=== PATIENT | female | born 1950 | race Caucasian/White ===

== ENCOUNTER → 2016-12-21 | Day surgery (SDC) | payer MEDICARE, OTHER ==
[~2016-12-21] MED LIST: ACET25TA2 PO; AMLO5TAB2 PO; ASPI81TA11 PO; ATEN50TA PO; CELE100C PO; CHLO.12%30 SWISH-SPIT; CO Q100C9 PO; ESTR42.5V VAGINAL; HYDR-3580 PO; LIDOCAINE HCL 1% 30 ML VIAL INFIL ONE; LIPI10TA PO; MEPERIDINE HCL 25 MG/ML VIAL IV ONE; MEST60TA PO; META0.522 PO; MIRA25TA PO; MULT1TAB46 PO; NEUR600T PO; PRED5TAB PO; PROPOFOL 200 MG/20 ML AMP IV ONE; SODIUM CHLORIDE 0.9% 10 ML VIAL ONE; TRIAMCINOLONE ACETONIDE 40 MG/ML VIAL NERV BLOCK ONE; VITA100064 PO; ZOLO100T PO
--- NOTE | 2016-12-24 16:14 | M6 ---
cc: MUARICIO MEDINA M.D. DATE: 12/21/2016 DATE OF : 1950 PROCEDURE Fluoroscopically guided C7-T1 translaminar epidural steroid injection. History and physical was completed and signed. Consent was signed. Procedure site was marked. Medications were listed and reconciled. Pain score was recorded. Allergies were noted. Time out was taken. Fluoroscopy time was recorded where applicable. Sedation was administered or directed by Dr. Medina. The patient was given oxygen. The patient was monitored by a registered nurse. Total procedure time was greater than 15 minutes. IV was started, blood pressure cuff, pulse oximeter and EKG were applied. The patient was placed in the prone position on a Fabricio table sedated with small amounts of propofol titrated to effect. Vital signs were monitored and remained stable throughout the procedure cervical area was prepped with alcohol and 10% Betadine solution and draped with sterile drapes. Fluoroscopy was used to visualize the C7-T1 translaminar space. The skin was infiltrated with 1% Xylocaine using a 27 gauge needle then a 3-1/2-inch 18-gauge Ricketts needle was advanced using fluoroscopic guidance and the [id number] technique into the epidural space at C7-T1 slightly to the left the midline. There was negative aspiration for blood or any other type of fluid and the patient was given 5 mL of normal saline 60 mg of Kenalog. Following this the patient was taken to the recovery room with stable vital signs neurologically intact. WMD GIOVANY Chaidez/ignacio /9:12 AM /4:08 PM
== END | disposition home or self-care (01) ==
LOC: PHSDC 06:47
PROVIDERS: ATTEND Pain Medicine Interventional Pain Medicine
DX: M54.2 Cervicalgia (principal); M25.519 Pain in unspecified shoulder
CPT/HCPCS: 62321; 99152; J2175; J3301

== ENCOUNTER → 2017-02-17 | Day surgery (SDC) | payer MEDICARE, OTHER ==
[~2017-02-17] MED LIST changes: +ATEN25TA PO; -ESTR42.5V VAGINAL; +FIBE625T PO; -LIDOCAINE HCL 1% 30 ML VIAL INFIL ONE; +LIDOCAINE HCL 1% 30 ML VIAL NERV BLOCK ONE; -LIPI10TA PO; -MEPERIDINE HCL 25 MG/ML VIAL IV ONE; -MEST60TA PO; +MIRA50TA PO; -PRED5TAB PO; +ROSU10 PO; +methylPREDNISolone ACETATE 80 MG/ML VIAL ONE
--- NOTE | 2017-02-17 10:18 | M6 ---
cc: MAURICIO MEDINA M.D. DATE: 02/17/2017 1950 PROCEDURE Fluoroscopically guided L3-4 translaminar epidural steroid injection. History and physical was completed and signed. Consent was signed. Procedure site was marked. Medications were listed and reconciled. Pain score was recorded. Allergies were noted. Time out was taken. Fluoroscopy time was recorded where applicable. Sedation was administered or directed by Dr. Medina. The patient was given oxygen. The patient was monitored by a registered nurse. Total procedure time was greater than 15 minutes. IV was started, blood pressure cuff, pulse oximeter and EKG were applied. The patient was placed in the prone position on a Fabricio table, sedated with small amounts of propofol titrated to effect. Vital signs were monitored and remained stable throughout the procedure. The lumbar area was prepped with alcohol and 10% Betadine solution and draped with sterile drapes. Fluoroscopy was used to visualize the L3-4 interlaminar space. The skin was infiltrated with 1% Xylocaine using a 27 gauge needle, then a 3-1/2-inch 18-gauge Ricketts needle was advanced using fluoroscopic guidance and the ciwz-qx-[id number] technique into the epidural space at L3-4 slightly to the left of the midline. There was negative aspiration for blood or any other type of fluid and the patient was given 8 mL of 0.5% Xylocaine, 80 mg of Depo-Medrol. Following the procedure the patient was taken to the recovery room with stable vital signs, neurologically intact. W. MD GIOVANY Daniels/RADHA /10:07 AM /10:12 AM
== END | disposition home or self-care (01) ==
LOC: PHSDC 08:39
PROVIDERS: ATTEND Pain Medicine Interventional Pain Medicine
DX: M54.16 Radiculopathy, lumbar region (principal)
CPT/HCPCS: 62323; 99152; J1040; J3301

== ENCOUNTER → 2017-03-24 | Day surgery (SDC) | payer MEDICARE, OTHER ==
[~2017-03-24] MED LIST changes: -ACET25TA2 PO; -ASPI81TA11 PO; +ASPI81TA23 PO; +DIPH25TA31 PO; -LIDOCAINE HCL 1% 30 ML VIAL NERV BLOCK ONE; +LIDOCAINE HCL 1% PF 30 ML VIAL INFIL ONE; +MEPERIDINE HCL 25 MG/ML VIAL IV ONE; -META0.522 PO; -MIRA25TA PO; -methylPREDNISolone ACETATE 80 MG/ML VIAL ONE
--- NOTE | 2017-03-24 10:02 | M6 ---
cc: MAURICIO MEDINA M.D. DATE 03/24/2017 DATE OF 1950 PROCEDURE Fluoroscopically guided C7-T1 translaminar epidural steroid injection. History and physical was completed and signed. Consent was signed. Procedure site was marked. Medications were listed and reconciled. Pain score was recorded. Allergies were noted. Time out was taken. Fluoroscopy time was recorded where applicable. Sedation was administered or directed by Dr. Medina. The patient was given oxygen. The patient was monitored by a registered nurse. Total procedure time was greater than 15 minutes. PROCEDURE NOTE IV was started. Blood pressure cuff, pulse oximeter and EKG were applied. The patient was placed in the prone position on a Fabricio table, sedated with small amounts of propofol titrated to effect. Vital signs were monitored and remained stable throughout the procedure. The cervical area was prepped with alcohol and 10% Betadine solution and draped with sterile drapes. Fluoroscopy was used to visualize the C7-T1 translaminar space. The skin was infiltrated with 1% Xylocaine using a 27-gauge needle. Then a 3-1/2-inch, 18-gauge Ricketts needle was advanced using fluoroscopic guidance and the [id number]-ff-buccwbtcko technique into the epidural space at C7-T1, slightly to the left of the midline. There was negative aspiration for blood or any other type of fluid and the patient was given 6 mL of normal saline, 60 mg of Kenalog. Following the procedure the patient was taken to the recovery room with stable vital signs, neurologically intact. W. MD GIOVANY Daniels/JANELL /9:17 AM /9:55 AM
== END | disposition home or self-care (01) ==
LOC: PHSDC 07:26
PROVIDERS: ATTEND Pain Medicine Interventional Pain Medicine
DX: M54.2 Cervicalgia (principal); M79.602 Pain in left arm; M79.601 Pain in right arm
CPT/HCPCS: 62321; 99152; J2175; J3301

== ENCOUNTER → 2017-05-24 | Day surgery (SDC) | payer MEDICARE, OTHER ==
[~2017-05-24] MED LIST changes: +BUPIVACAINE HCL PF 0.5% 30 ML VIAL ONE; -LIDOCAINE HCL 1% PF 30 ML VIAL INFIL ONE; -MEPERIDINE HCL 25 MG/ML VIAL IV ONE; -SODIUM CHLORIDE 0.9% 10 ML VIAL ONE; +TRIAMCINOLONE ACETONIDE 40 MG/ML VIAL I-ARTICULR ONE; -TRIAMCINOLONE ACETONIDE 40 MG/ML VIAL NERV BLOCK ONE; +VITA100052 PO
--- NOTE | 2017-05-24 09:40 | M6 ---
cc: MAURICIO MEDINA M.D. DATE 05/24/2017 DATE OF 1950 PROCEDURE Fluoroscopically guided injection bilateral cervical facet joints (bilateral C3-4, C4-5 and C5-6 facet joints). PROCEDURE NOTE History and physical was completed and signed. Consent was signed. Procedure site was marked. Medications were listed and reconciled. Pain score was recorded. Allergies were noted. Timeout was taken. Fluoroscopy time was recorded where applicable. Sedation was administered or directed by Dr. Medina. The patient was given oxygen. The patient was monitored by a registered nurse. Total procedure time was greater than 15 minutes. An IV was started, blood pressure cuff, pulse oximeter and EKG were applied. The patient was placed in the prone position on a Fabricio table, sedated with small amounts of propofol titrated to effect. Vital signs were monitored and remained stable throughout the procedure. The cervical area was prepped with alcohol and 10% Betadine solution, draped with sterile drapes. Fluoroscopy was used to visualize the bilateral cervical facet joints at C3-4, C4-5 and C5-6. Separate sterile 3-1/2 inch, 25-gauge spinal needles were advanced to these joints under fluoroscopic guidance. There was negative aspiration for blood or any other type of fluid, and at each location the patient was given 1 mL of 0.5% Marcaine, 10 mg of Kenalog. Following the procedure the patient was taken to the recovery room with stable vital signs, neurologically intact. She will be evaluated immediately and with follow-up to determine if she has a subjective decrease in her neck pain and a corresponding objective increase in her functional capabilities. W. Clifford Medina MD WRM/ALIRIO /9:18 AM /9:23 AM
== END | disposition home or self-care (01) ==
LOC: PHSDC 07:21
PROVIDERS: ATTEND Pain Medicine Interventional Pain Medicine
DX: M54.2 Cervicalgia (principal); M79.602 Pain in left arm; M79.601 Pain in right arm
CPT/HCPCS: 64490; 64491; 64492; 99152; J3301